=== PATIENT | female | born 1945 | race Caucasian/White ===

== ENCOUNTER 2016-10-31 18:45 | Emergency (ER) | payer OTHER ==
[2016-10-31 19:04] VITALS: RESP 16
--- NOTE | 2016-10-31 19:22 | EDPHY ---
H & P Stated Complaint: Tripped and fell;hit back of head;no LOC, wants to get checked out Time Seen by Provider: 10/31/16 19:11 HPI/ROS: CHIEF COMPLAINT: Fall HISTORY OF PRESENT ILLNESS: Patient is a 71-year-old female who is in good health comes to the emergency department herself after a fall. She states that she was on the 3rd step of a 5 step staircase leaving a dog when she was jerked by the dog and fell backwards. She fell backwards and down 2 steps. She hit her head on the doorjamb. She heard a crack. She did not lose consciousness. She denies head or neck or back pain. She denies extremity injuries. She does not have a headache. No nausea vomiting. She does not take any blood thinners. She was concerned however because of the impact and noise. REVIEW OF SYSTEMS: Constitutional: denies: chills, fever, recent illness, recent injury EENTM: denies: blurred vision, double vision, nose congestion Respiratory: denies: cough, shortness of breath Cardiac: denies: chest pain, irregular heart rate, lightheadedness, palpitations Gastrointestinal/Abdominal: denies: abdominal pain, diarrhea, nausea, vomiting, blood streaked stools Genitourinary: denies: dysuria, frequency, hematuria, pain Musculoskeletal: See HPI Skin: denies: lesions, rash, jaundice, bruising Neurological: denies: headache, numbness, paresthesia, tingling, dizziness, weakness Hematologic/Lymphatic: denies: blood clots, easy bleeding, easy bruising Immunologic/allergic: denies: HIV/AIDS, transplant EXAM: GENERAL: Well-appearing, well-nourished and in no acute distress. HEAD: Atraumatic, normocephalic. no abrasion, hematoma laceration EYES: Pupils equal round and reactive to light, extraocular movements intact, sclera anicteric, conjunctiva are normal. ENT: TMs normal, nares patent, oropharynx clear without exudates. Moist mucous membranes. NECK: Normal range of motion, supple without lymphadenopathy or JVD. No midline tenderness LUNGS: Breath sounds clear to auscultation bilaterally and equal. No wheezes rales or rhonchi. HEART: Regular rate and rhythm without murmurs, rubs or gallops. ABDOMEN: Soft, nontender, normoactive bowel sounds. No guarding, no rebound. No masses appreciated. BACK: No CVA tenderness, no spinal tenderness, step-offs or deformities EXTREMITIES: Normal range of motion, no pitting or edema. No clubbing or cyanosis. NEUROLOGICAL: Cranial nerves II through XII grossly intact. Normal speech, normal gait. 5/5 strength, normal movement in all extremities, normal sensation PSYCH: Normal mood, normal affect. SKIN: Warm, dry, normal turgor, no visible rashes or lesions. Source: Patient Exam Limitations: No limitations - Personal History Current Tetanus Diphtheria and Acellular Pertussis (TDAP): Unsure - Medical/Surgical History Hx Asthma: No Hx Chronic Respiratory Disease: No Hx Diabetes: No Hx Cardiac Disease: No Hx Renal Disease: No Hx Cirrhosis: No Hx Alcoholism: No Other PMH: healthy but has a "lot" of sensitivities to chemicals - Social History Smoking Status: Former smoker Alcohol Use: Sober Drug Use: None Constitutional: Initial Vital Signs Temperature (C) 36.8 C 10/31/16 18:50 Heart Rate 70 10/31/16 18:50 Respiratory Rate 16 10/31/16 18:50 Blood Pressure 105/93 H 10/31/16 18:50 O2 Sat (%) 96 10/31/16 18:50 O2 Delivery Mode Room Air Allergies/Adverse Reactions: sensitivities to chemcials and pain Allergy (Uncoded 10/31/16 19:04) Home Medications: Medication Instructions Recorded NK [No Known Home Meds] 10/31/16 Medical Decision Making - Diagnostics Imaging: Results: CT scan of the head and cervical spine was obtained. The results of the study are negative. The study was read by Radiology. I viewed the images myself on the PACS system. ED Course/Re-evaluation: We discussed the CT results. The patient is relieved. She remains asymptomatic. She is eager to go home. We discussed cautions and indications for returning. She is happy with this and declines further workup or testing at this time. Differential Diagnosis: Partial list of the Differential diagnosis considered include but were not limited to; contusion, laceration, fracture and although unlikely based on the history and physical exam, I also considered intracranial injury, cervical spine injury, assault. I discussed these differential diagnoses and the plan with the patient as well as the usual and expected course. The patient understands that the diagnosis is provisional and that in medicine we are not always correct and that further workup is often warranted. Usual and customary warnings were given. All of the patient's questions were answered. The patient was instructed to return to the emergency department should the symptoms at all worsen or return, otherwise to followup with the physician as we discussed. Departure - Departure Disposition: Home, Routine, Self-Care Clinical Impression: Fall Qualifiers: Encounter type: initial encounter Qualified Code(s): W19.XXXA - Unspecified fall, initial encounter Condition: Fair Instructions: Fall Prevention (ED) Referrals: Joycelyn Bucio MD [Primary Care Provider] - As per Instructions
[2016-10-31 19:53] VITALS: TEMP 97.9
[2016-10-31 20:38] VITALS: BP 127/74; PULSE 65; O2SAT 95
== END 2016-10-31 20:38 | disposition home or self-care (01) ==
DX: Z04.3 Encounter for examination and observation following other accident (principal); Z87.891 Personal history of nicotine dependence; W01.198A Fall on same level from slipping, tripping and stumbling with subsequent striking against other object, initial encounter

== ENCOUNTER → 2016-11-13 | Outpatient (CLI) | payer OTHER | LOC: FIMAGING 13:04 | DX: Z12.31 Encounter for screening mammogram for malignant neoplasm of breast (principal); Z80.3 Family history of malignant neoplasm of breast | CPT/HCPCS: G0202 ==

== ENCOUNTER → 2017-11-18 | Outpatient (CLI) | payer OTHER | LOC: FIMAGING 15:40 | PROVIDERS: ATTEND Family Medicine | DX: Z12.31 Encounter for screening mammogram for malignant neoplasm of breast (principal) ==

== ENCOUNTER 2018-03-12 10:54 | Observation (INO) | payer OTHER ==
--- NOTE | 2018-03-12 11:36 | EDPHY ---
H & P Stated Complaint: dry cough x 2 weeks/saw pcp dx post nasal drip/just not better Source: Patient Exam Limitations: No limitations - Personal History Current Tetanus Diphtheria and Acellular Pertussis (TDAP): No - Medical/Surgical History Hx Asthma: No Hx Chronic Respiratory Disease: No Hx Diabetes: No Hx Cardiac Disease: No Hx Renal Disease: No Hx Cirrhosis: No Hx Alcoholism: No Hx HIV/AIDS: No Hx Splenectomy or Spleen Trauma: No Other PMH: healthy but has a "lot" of sensitivities to chemicals/. sinus lift - Social History Smoking Status: Former smoker Time Seen by Provider: 03/12/18 11:35 HPI/ROS: HPI: This is a 72-year-old female who presents with Chief Complaint: dry cough x 2 weeks/saw pcp dx post nasal drip/just not better Location: chest Quality: cough Duration: 2 weeks Signs and Symptoms: no shortness of breath at rest, no shortness of breath on exertion,+ productive cough yellowish in color, no chest pain, no palpitations, no lower extremity edema, no wheezing, no orthopnea, no paroxysmal nocturnal dyspnea, no fever, no injury/trauma, no hemoptysis, no carpal pedal spasms Timing: Worsening Severity: Moderate Context: Patient presents with a productive cough that is worsening over the last 2 weeks. Reports that she was diagnosed with upper respiratory infection and postnasal drip by primary care provider approximately 2 weeks ago and prescribed nasal spray and [id number] allergy medications. She reports no relief using these medications. She has not had any recent long distance travel and denies any lower extremity swelling. She has had no fever. She reports that she feels like she has had some wheezing intermittently. Her cough is worse at night. Her cough is productive in nature with yellowish tinged sputum. She denies any chest pain, shortness of breath, fever. No history of lung disease. Nonsmoker. Modifying Factors: See above Comment: ROS: see HPI Constitutional: No fever, no chills, no weight loss Eyes: No blurred vision Respiratory: No shortness of breath, + cough Cardiovascular: No chest pain, no palpitations, no lower extremity edema Gastrointestinal: No nausea, no vomiting, no diarrhea Genitourinary: No dysuria Extremities: No myalgias Neurologic: No weakness, no numbness Skin: No rashes Hematologic: No bruising, no bleeding MEDICAL/SURGICAL/SOCIAL HISTORY: Medical history: healthy but has a "lot" of sensitivities to chemicals/sinus lift Surgical history: sinus lift Social history: Retired. Nonsmoker. CONSTITUTIONAL: Nontoxic-appearing elderly white female, awake and alert, no obvious distress HEENT: Atraumatic and normocephalic, PERRL, EOMI. Nares patent; no rhinorrhea; no nasal mucosal edema. Tympanic membranes clear. Oropharynx clear, no exudate and moist pink mucosa. Airway patent. No lymphadenopathy. No meningismus. Cardiovascular: Normal S1/S2, regular rate, regular rhythm, without murmur rub or gallop. PULMONARY/CHEST: Symmetrical and nontender. Clear to auscultation bilaterally. Good air movement. No accessory muscle usage. ABDOMEN: Soft, nondistended, nontender, no rebound, no guarding, no peritoneal signs, no masses or organomegaly. No CVAT. EXTREMITIES: 2/2 pulses, strength 5/5, no deformities, no clubbing, no cyanosis or edema. NEUROLOGICAL: no focal neuro deficits. GCS 15. SKIN: Warm and dry, no erythema. no rash. Good capillary refill. (Delia Uriarte) Constitutional: Initial Vital Signs Temperature (C) 36.6 C 03/12/18 11:01 Heart Rate 85 03/12/18 11:01 Respiratory Rate 18 03/12/18 11:01 Blood Pressure 144/85 H 03/12/18 11:01 O2 Sat (%) 91 L 03/12/18 11:01 O2 Delivery Mode Nasal Cannula O2 (L/minute) 2 Allergies/Adverse Reactions: sensitivities to chemcials and pain Allergy (Uncoded 03/12/18 11:01) Home Medications: Medication Instructions Recorded Albuterol [Proventil Inhaler HFA 1 - 2 puffs IH Q4H PRN 03/12/18 (*)] Aspirin [Aspirin 81mg (*)] 81 mg PO DAILY 03/12/18 Cetirizine [ZyrTEC 10 mg (*)] 10 mg PO DAILY 03/12/18 Cholecalciferol Vit D3 [Vitamin D3 2,000 units PO DAILY 03/12/18 2000 units tab (OTC)] Fluticasone Nasal [Flonase Nasal 1 spray EACHNARE DAILY 03/12/18 [place]] Herbals/Supplements -Info Only 1 ea PO DAILY 03/12/18 Multivitamins W-Minerals [Thera M 1 each PO DAILY 03/12/18 Plus Tablet (*)] Similasan Eye Relief Drops 1 drop EACHEYE DAILY PRN 03/12/18 guaiFENesin [Mucinex 600 MG (*)] 600 mg PO DAILY 03/12/18 Fluticasone/Salmeter 100/50Mcg 1 puffs IH BID #1 disk 03/13/18 [Advair 100/50 (*)] predniSONE 20 mg PO DAILY #3 tablet 03/13/18 Medical Decision Making ED Course/Re-evaluation: Labs, chest x-ray ordered Vital signs stable upon arrival. No signs of tachycardia. O2 sats upon arrival were 90-91% on room air, placed on 2 L nasal cannula with oxygen saturation increasing to 96%. 1215: Troponin is negative. 1225: Labs reviewed. No signs of leukocytosis/anemia/platelet dysfunction/CARY/ electrolyte imbalance/VTE/CHF/ACS. Chest x-ray my read shows mild prominence on the left middle lobe. Suspect developing infiltrate. Blood cultures ordered and Given IV Levaquin. 1310: ED decision to consult hospitalist for admission for community-acquired pneumonia and hypoxia. Patient will be admitted to Dr. Granados on Med Surg. This patient was seen under the supervision of my secondary supervising physician. I evaluated care for this patient independently. Discussed this patient with Dr. York who did see the patient. (Delia Uriarte) The patient was evaluated and managed by the physician human resources office assistant. I have reviewed this chart and I agree with the findings and plan of care as documented , as indicated by my signature. I am the secondary supervising physician. I did not interview or examine this patient. I did review the patient's x-ray. ( Devora York) Differential Diagnosis: Shortness of breath including but not limited to pulmonary infectious process, COPD, asthma, pulmonary embolus and congestive heart failure. (Delia Uriarte) - Data Points Laboratory Results: Laboratory Results 03/12/18 11:55 03/12/18 11:55 Medications Given: Albuterol (Proventil Neb) 3 ml IH QID MARY ANN Stop: 09/08/18 15:59 Last Admin: 03/13/18 06:22 Dose: 3 ml Aspirin (Aspirin) 81 mg PO DAILY MARY ANN Stop: 09/08/18 15:29 Last Admin: 03/13/18 08:08 Dose: 81 mg Cetirizine HCl (Zyrtec) 10 mg PO DAILY MARY ANN Stop: 09/09/18 08:59 Last Admin: 03/13/18 08:08 Dose: 10 mg Fluticasone Propionate (Flonase Nasal [place]) 1 sprays EACHNARE DAILY MARY ANN Stop: 09/08/18 14:14 Last Admin: 03/13/18 08:08 Dose: 1 spray Guaifenesin (Mucinex) 600 mg PO BID [facility] Stop: 09/08/18 20:59 Last Admin: 03/13/18 08:08 Dose: 600 mg Prednisone (Prednisone) 20 mg PO DAILY MARY ANN Stop: 09/08/18 15:44 Last Admin: 03/13/18 08:09 Dose: 20 mg Discontinued Medications Sodium Chloride (Ns) 500 mls @ 1,000 mls/hr IV EDNOW ONE PRN Reason: Protocol Stop: 03/12/18 12:09 Last Admin: 03/12/18 11:51 Dose: 500 mls Levofloxacin/Dextrose (Levaquin 750 Mg (Premix)) 150 mls @ 100 mls/hr IV EDNOW ONE PRN Reason: Protocol Stop: 03/12/18 14:38 Last Admin: 03/12/18 13:59 Dose: 150 mls Prednisone (Prednisone) 40 mg PO DAILY MARY ANN Stop: 09/08/18 15:44 Last Admin: 03/12/18 16:11 Dose: 40 mg Point of Care Test Results: Chemistry 03/12/18 12:05 POC Troponin I 0.00 ng/mL ng/mL (0.00-0.08) Departure - Departure Disposition: [facility] Inpatient Acute Clinical Impression: Hypoxia Community acquired pneumonia Qualifiers: Laterality: unspecified laterality Qualified Code(s): J18.9 - Pneumonia, unspecified organism Condition: Good
[2018-03-12] MEDS ORDERED: NS 500 ML IV ONE (11:40)
[2018-03-12 12:02] LABS: PLATELET COUNT 176 10^3/uL (150-400)
[2018-03-12] MEDS ORDERED: ALBUTEROL 3 ML DEYVIAL IH PRN ×2 (14:02→15:58)
[2018-03-12] MEDS ORDERED: ACETAMINOPHEN 325 MG TAB PO PRN (14:02)
[2018-03-12] MEDS ORDERED: GUAIFENESIN/DM 10 ML UDCUP PO PRN (14:06)
[2018-03-12] MEDS ORDERED: [UNRECOGNIZED DRUG - OTHER] EACHEYE PRN (15:22)
[2018-03-12] MEDS ORDERED: predniSONE 20 MG TAB PO SCH ×2 (15:45→15:47)
--- NOTE | 2018-03-12 15:46 | PDGENHP ---
History and Physical - Chief Complaint wheezing, cough - History of Present Illness 72 yo female with h/o allergies and recent diagnosis of reactive airway presented to ED with wheezing and SOB. She was started on Albuterol inhaler, zyrtec and flonase by her PCP ~2 weeks ago, but the cough and wheezing worsened over past few days and she came to ED. She denies fevers/chills. No pleuritic pain. She notes sensitivity to smoke and allergens. It has been more smokey this weekend in [place]. In the ED, she was mildly hypoxemic and is admitted to the hospital for further management. History Information - Allergies/Home Medication List Allergies/Adverse Reactions: sensitivities to chemcials and pain Allergy (Uncoded 03/12/18 11:01) Home Medications: Albuterol [Proventil Inhaler HFA (*)] 1 - 2 puffs IH Q4H PRN 03/12/18 [Last Taken 03/11/18] Aspirin [Aspirin 81mg (*)] 81 mg PO DAILY 03/12/18 [Last Taken 03/10/18] Cetirizine [ZyrTEC 10 mg (*)] 10 mg PO DAILY 03/12/18 [Last Taken 03/11/18] Cholecalciferol Vit D3 [Vitamin D3 2000 units tab (OTC)] 2,000 units PO DAILY [Last Taken 03/11/18] Fluticasone Nasal [Flonase Nasal [place]] 1 spray EACHNARE DAILY 03/12/18 [Last Taken 03/11/18] Herbals/Supplements -Info Only 1 ea PO DAILY 03/12/18 [Last Taken Unknown] Multivitamins W-Minerals [Thera M Plus Tablet (*)] 1 each PO DAILY 03/12/18 [ Last Taken 03/11/18] Similasan Eye Relief Drops 1 drop EACHEYE DAILY PRN 03/12/18 [Last Taken ] guaiFENesin [Mucinex 600 MG (*)] 600 mg PO DAILY 03/12/18 [Last Taken 03/11/18] I have personally reviewed and updated: family history, medical history, social history, surgical history - Past Medical History Additional medical history: allergic rhinitis, post-nasal drip. RAD - Surgical History Reports: no pertinent surgical hx - Family History Positive for: non-pertinent - Social History Smoking Status: Former smoker Alcohol Use: None Drug Use: None Additional social history: Lives independently Review of Systems Review of Systems: ROS: 10pt was reviewed & negative except for what was stated in HPI & below Physical Exam Physical Exam: Temp Pulse Resp BP Pulse Ox 36.6 C 80 16 135/82 H 96 03/12/18 11:01 03/12/18 14:54 03/12/18 14:54 03/12/18 14:54 03/12/18 14:54 O2 (L/minute) 2 Constitutional: no apparent distress Eyes: PERRL Ears, Nose, Mouth, Throat: moist mucous membranes Cardiovascular: regular rate and rhythym Respiratory: no respiratory distress, reduced air movement, expiratory wheeze Gastrointestinal: normoactive bowel sounds, soft, non-tender abdomen Skin: warm Musculoskeletal: full muscle strength Neurologic: AAOx3 Psychiatric: interacting appropriately Lab Data & Imaging Review 03/12/18 11:55 03/12/18 11:55 WBC 8.32 10^3/uL (3.80-9.50) 03/12/18 11:55 RBC 4.72 10^6/uL (4.18-5.33) 03/12/18 11:55 Hgb 14.4 g/dL (12.6-16.3) 03/12/18 11:55 Hct 43.5 % (38.0-47.0) 03/12/18 11:55 MCV 92.2 fL (81.5-99.8) 03/12/18 11:55 MCH 30.5 pg (27.9-34.1) 03/12/18 11:55 MCHC 33.1 g/dL (32.4-36.7) 03/12/18 11:55 RDW 13.7 % (11.5-15.2) 03/12/18 11:55 Plt Count 176 10^3/uL (150-400) 03/12/18 11:55 MPV 12.4 fL (8.7-11.7) H 03/12/18 11:55 Neut % (Auto) 55.8 % (39.3-74.2) 03/12/18 11:55 Lymph % (Auto) 23.7 % (15.0-45.0) 03/12/18 11:55 [place] % (Auto) 6.4 % (4.5-13.0) 03/12/18 11:55 Eos % (Auto) 12.9 % (0.6-7.6) H 03/12/18 11:55 Baso % (Auto) 1.0 % (0.3-1.7) 03/12/18 11:55 Nucleat RBC Rel Count 0.0 % (0.0-0.2) 03/12/18 11:55 Absolute Neuts (auto) 4.65 10^3/uL (1.70-6.50) 03/12/18 11:55 Absolute Lymphs (auto) 1.97 10^3/uL (1.00-3.00) 03/12/18 11:55 Absolute Monos (auto) 0.53 10^3/uL (0.30-0.80) 03/12/18 11:55 Absolute Eos (auto) 1.07 10^3/uL (0.03-0.40) H 03/12/18 11:55 Absolute Basos (auto) 0.08 10^3/uL (0.02-0.10) 03/12/18 11:55 Absolute Nucleated RBC 0.00 10^3/uL (0-0.01) 03/12/18 11:55 Immature Gran % 0.2 % (0.0-1.1) 03/12/18 11:55 Immature Gran # 0.02 10^3/uL (0.00-0.10) 03/12/18 11:55 D-Dimer 0.49 ug/mLFEU (0.00-0.50) 03/12/18 11:55 Sodium 138 mEq/L (135-145) 03/12/18 11:55 Potassium 3.7 mEq/L (3.3-5.0) 03/12/18 11:55 Chloride 109 mEq/L (97-110) 03/12/18 11:55 Carbon Dioxide 24 mEq/l (22-31) 03/12/18 11:55 Anion Gap 5 mEq/L (8-16) L 03/12/18 11:55 BUN 9 mg/dL (7-23) 03/12/18 11:55 Creatinine 0.6 mg/dL (0.6-1.0) 03/12/18 11:55 Estimated GFR > 60 03/12/18 11:55 Glucose 101 mg/dL (70-100) H 03/12/18 11:55 Calcium 9.5 mg/dL (8.5-10.4) 03/12/18 11:55 POC Troponin I 0.00 ng/mL (0.00-0.08) 03/12/18 12:05 NT-Pro-B Natriuret Pep 16 pg/mL (0-125) 03/12/18 11:55 Procalcitonin < 0.02 ng/mL (0.02-0.10) L 03/12/18 11:55 Visualized and Interpreted Chest x-ray results: Yes Chest X-Ray results: no infiltrate Assessment & Plan Assessment: AHRF 2/2 RAD exacerbation - likely triggered by hayfever / allergies. Requiring 2 LPM O2. CXR with kashif-bronchial thickening. PCT neg, doubt bacterial PNA. -start oral prednisone (low dose per pt request) -cont zyrtec, flonase -albuterol nebs QID plus prn -send resp viral panel -guaifenesin, anti-tussives prn -wean O2 as able -likely needs inhaled steroid at discharge Full code Dispo - obs
[2018-03-12] MEDS: ASPIRIN 81 MG CHEWABLE TAB PO SCH (16:10)
[2018-03-12] MEDS: FLUTICASONE NASAL 120 SPRAYS/16 GM MDI EACHNARE SCH (16:13)
[2018-03-12] MEDS: ALBUTEROL 3 ML DEYVIAL IH SCH ×2 (17:59→21:48)
[2018-03-12] MEDS: guaiFENesin 600 MG TAB.ER PO SCH (20:16)
[2018-03-13] MEDS: ALBUTEROL 3 ML DEYVIAL IH SCH ×2 (06:22→10:26)
[2018-03-13] MEDS: guaiFENesin 600 MG TAB.ER PO SCH (08:08)
[2018-03-13] MEDS: ASPIRIN 81 MG CHEWABLE TAB PO SCH (08:08)
[2018-03-13] MEDS: FLUTICASONE NASAL 120 SPRAYS/16 GM MDI EACHNARE SCH (08:08)
--- NOTE | 2018-03-13 08:48 | ASDISCHSUM ---
Discharge Information Plan Status:Home with No Needs Medically Cleared to Leave:03/13/2018 Discharge Date:03/13/2018 CM D/C Disposition:Home, Routine, Self-Care ADT D/C Disposition:Home, Routine, Self-Care Projected Discharge Date:03/13/2018 Transportation at D/C: Discharge Delay Reason: Follow-Up Date:03/13/2018 Discharge Slot: Final Diagnosis: Placement Information Patient Contact Information Contact Name:EVA Relationship: Address:[address] [place] [address] Work Phone: City:[facility] Phone: [facility]/Zip Code:[place] [address] Email: Financial Information Financial Class:Medicare Advantage Plans Primary Plan Desc:[facility] ADVANTAGE PLANS Primary Plan Number:[id number] Secondary Plan Desc: Secondary Plan Number: Assessment Information LACE LACE Length of stay for Answers: Less than 1 day current admission Acuity / Level of Answers: Yes Care: Did the patient have an inpatient admission? Comorbidities - select Answers: Other Notes: RAD all that apply # of Emergency department Answers: 1-2 visits in the last 6 months Score: 5 Date Signed: 03/13/2018 08:45 AM Electronically Signed By:Shayna Arevalo RN [facility] CM Progress Note CM Note CM Note Notes: Chart reviewed. Patient has been medically clear to discharge to home no needs. CM available should needs arise. Plan: DC to home independently. Date Signed: 03/13/2018 08:47 AM Electronically Signed By:Shayna Arevalo RN Intervention Information
[2018-03-13 08:51] VITALS: BP 129/82
[2018-03-13] MEDS ORDERED: CETIRIZINE 10 MG TAB PO SCH (09:00)
--- NOTE | 2018-03-13 14:27 | GDS ---
[f rep st] DISCHARGE SUMMARY DISCHARGE DIAGNOSES: 1. Hypoxemia secondary to reactive airway disease exacerbation. 2. Acute reactive airway disease exacerbation secondary to allergies and environmental exposures. HISTORY OF PRESENT ILLNESS: For details please see the history and physical dated March 12, 2018. In brief, the patient is a 72-year-old female with a history of allergic rhinitis who presents to the emergency department with 2 weeks of wheezing and cough. She was found to be mildly hypoxemic with an oxygen saturation of 90% on room air and was admitted to the hospital for further management. HOSPITAL COURSE: The patient received a dose of Levaquin in the emergency department, admitted to e Medical/Surgical Unit. There was no evidence of focal infiltrate on her chest x-ray, but she did browne ve diffuse peribronchial wall thickening. Her procalcitonin was negative, thus antibiotics were disc ontinued. It is noted she is a former smoker and there may be some emphysematous configuration on he r chest x-ray, thus she should under go outpatient pulmonary function test to evaluate for COPD. It seems this reactive airway exacerbation was triggered by hay fever and allergies and also recent smok y air. She did require 2 liters of oxygen overnight that was weaned to room air the following mornin g with her saturation maintaining around 94% during our entire lengthy visit. She was treated with or al prednisone as well as albuterol nebulizers. A respiratory viral panel was negative. She was kinza nued on Zyrtec and Flonase and at discharge we will also add Advair. As above, she should undergo ou tpatient pulmonary function tests and if there is evidence of a COPD pattern, she may benefit from [facility] addition of ipratropium and I request her PCP look into this further. DISPOSITION: The patient is discharged home in stable condition. FOLLOWUP: 1. Dr. Joycelyn Bucio, primary care. 2. Outpatient referral for pulmonary function test is recommended. DISCHARGE MEDICATIONS: Please see [employer] for complete outpatient medication list. New medications on discharge include: 1. Prednisone 20 mg p.o. daily for 3 more days for a total of 5-day burst (the patient declined a hi gher dose). 2. Advair 100/50 1 puff inhaled twice daily. She will continue on all of her other outpatient medications as previously prescribed including albut jorge, guaifenesin, Zyrtec, aspirin. /[id number]/MODL
--- NOTE | 2018-03-16 16:42 | HOSPPROG ---
Hospitalist Progress Note Assessment/Plan: Received call from lab re: BCx's. One of two anaerobic bottles positive for gram positive rods. PCR ID is negative, no orgs. Her clinical course during her overnight hospital observation was not suggestive of bacterial infection or bacteremia. She was afebrile, had normal wbc's. I've phoned the patient multiple times to check on her condition, but was unable to reach her. Left voicemail requesting she call back our industrial education teacher pager. If she calls back and has any symptoms suggestive of bacteremia such as fevers, chills, pain, etc, please return to ED immediately. Since I was unable to reach the patient, I phoned her PCP office and discussed the case with Dr. Hoffmann, who is covering for her PCP. Their office will continue to attempt to reach her and follow up on BCx's. This may be a contaminant. Objective: Vital Signs Temp Pulse Resp BP Pulse Ox 36.9 C 75 16 129/82 H 90 L 03/13/18 08:49 03/13/18 10:26 03/13/18 10:26 03/13/18 08:49 03/13/18 10:26 Microbiology 03/12/18 13:43 Blood Panel (PCR) - Final Blood No Organism Detected ICD10 Worksheet Patient Problems: Problems Problem Status Onset Community acquired pneumonia Acute Hypoxia Acute
== END 2018-03-13 12:12 | disposition home or self-care (01) ==
LOC: INTOOBSV 13:28 → F3E 15:03
PROVIDERS: ADMIT Hospitalist; ATTEND Hospitalist
DX: J45.901 Unspecified asthma with (acute) exacerbation (principal); R09.02 Hypoxemia
CPT/HCPCS: 71046; G0378; J1956; J7512; J7613; 84484-PO

== ENCOUNTER 2018-11-20 21:52 | Emergency (ER) | payer OTHER ==
[2018-11-20] MEDS ORDERED: ASPIRIN 81 MG CHEWABLE TAB PO ONE (22:09)
[2018-11-20] MEDS ORDERED: MAG HYDROX/AL HYDROX/SIMETH 30 ML UDCUP PO ONE (22:10)
[2018-11-20] MEDS ORDERED: HYOSCYAMINE SULFATE 0.125 MG TAB PO ONE (22:10)
[2018-11-20] MEDS ORDERED: IPRATROPIUM/ALBUTEROL 3 ML DEYVIAL IH ONE ×2 (22:41→22:42)
--- NOTE | 2018-11-20 22:49 | EDPHY ---
H & P Stated Complaint: Chest tightness for several weeks. 5/10 tonight. Time Seen by Provider: 11/20/18 21:58 HPI/ROS: This patient reports 2 weeks of intermittent chest tightness. Current episode has been present for about 45 min. She feels increased GERD symptoms recently associated with her symptoms and notes that the tender worse when she is supine compared to when she is upright. Symptoms and resolved when she is upright. She describes peak intensity is 6/10 substernal location but also thinks symptoms may be attributable to tightness from emphysema. She did take a Flovent inhaler treatment last night with partial improvement of her symptoms. She took Zantac 150 mg at 7:00 p.m. Tonight prior to coming in reports that she intermittently takes Zantac and admits that she has had increased belching, and acid reflux symptoms of burning in her chest recently. ROS: Constitutional: No fevers or chills HEENT: No URI symptoms Pulmonary: Mild chronic cough since the summer. No pleuritic pain or hemoptysis. Cardiovascular: No heart palpitations. No lower extremity edema or calf pain. No lightheadedness. GI: No abdominal pain nausea vomiting. : No complaints Integumentary: No complaints 10 point review of symptoms is performed and otherwise negative with exception of pertinent positives and negatives listed in HPI and ROS Source: Patient Exam Limitations: No limitations - Medical/Surgical History Hx Asthma: No Hx Chronic Respiratory Disease: No Hx Diabetes: No Hx Cardiac Disease: No Hx Renal Disease: No Hx Cirrhosis: No Hx Alcoholism: No Hx HIV/AIDS: No Hx Splenectomy or Spleen Trauma: No Other PMH: healthy but has a "lot" of sensitivities to chemicals/. sinus lift, NIKIA on 2L at night. - Family History Significant Family History: No pertinent family hx - Social History Smoking Status: Former smoker (She was a heavy smoker but quit in the late 1980s.) Alcohol Use: Rarely Drug Use: None - Physical Exam Exam: General Appearance: Alert, no distress. Eyes: Pupils equal and round no pallor or injection. ENT, Mouth: Mucous membranes moist. Respiratory: There are no retractions, lungs are clear to auscultation. Cardiovascular: Regular rate and rhythm. No murmur gallop rub Gastrointestinal: Abdomen is soft and nontender, no masses, bowel sounds normal. Neurological: GCS 15. Skin: Warm and dry, no rashes. Musculoskeletal: Neck is supple nontender. Extremities are symmetrical, full range of motion. Psychiatric: Mood and affect normal DIFFERENTIAL DIAGNOSIS: After history and physical exam differential diagnosis was considered for GERD with esophagitis and/or esophageal spasm, mild COPD exacerbation with tightness due to bronchial constriction, pneumonia, pneumothorax, myocardial ischemic disease Constitutional: Initial Vital Signs Temperature (C) 36.8 C 11/20/18 21:59 Heart Rate 77 11/20/18 21:59 Respiratory Rate 18 11/20/18 21:59 Blood Pressure 168/85 H 11/20/18 21:59 O2 Sat (%) 94 11/20/18 21:59 O2 Delivery Mode Room Air Allergies/Adverse Reactions: sensitivities to chemcials and pain Allergy (Uncoded 03/12/18 11:01) Home Medications: Medication Instructions Recorded Albuterol [Proventil Inhaler HFA 1 - 2 puffs IH Q4H PRN 03/12/18 (*)] Aspirin [Aspirin 81mg (*)] 81 mg PO DAILY 03/12/18 Cetirizine [ZyrTEC 10 mg (*)] 10 mg PO DAILY 03/12/18 Cholecalciferol Vit D3 [Vitamin D3 2,000 units PO DAILY 03/12/18 2000 units tab (OTC)] Fluticasone Nasal [Flonase Nasal 1 spray EACHNARE DAILY 03/12/18 [place]] Herbals/Supplements -Info Only 1 ea PO DAILY 03/12/18 Multivitamins W-Minerals [Thera M 1 each PO DAILY 03/12/18 Plus Tablet (*)] Similasan Eye Relief Drops 1 drop EACHEYE DAILY PRN 03/12/18 guaiFENesin [Mucinex 600 MG (*)] 600 mg PO DAILY 03/12/18 Fluticasone/Salmeter 100/50Mcg 1 puffs IH BID #1 disk 03/13/18 [Advair 100/50 (*)] predniSONE 20 mg PO DAILY #3 tablet 03/13/18 Albuterol Hfa Anes Only [Proair 2 puffs IH Q4 PRN #1 mdi 11/20/18 Hfa Icu (*)] Azithromycin [Zithromax] 250 mg PO DAILY #4 tab 11/20/18 Fluticasone Hfa 220 Mcg [Flovent 2 puffs IH DAILY #1 mdi 11/20/18 220 MCG Hfa MDI (*)] Hyoscyamine Sulfate [Levsin, 0.125 - 0.25 mg SL Q6 PRN #20 tab 11/20/18 Hyomax-Sl 0.125 mg (*)] Medical Decision Making - Diagnostics EKG Interpretation: 12 lead EKG performed shortly after arrival at 10:02 p.m. Reveals sinus rhythm at 78 Intervals: Normal throughout [place]: Normal throughout ST segments: Normal throughout Overall assessment sinus rhythm normal EKG Imaging Results: Two view chest x-ray: Emphysematous findings with question small left mid lung lesion verses blood vessel viewed on end. Imaging: Discussed imaging studies w/ call circuit worker Radiologist, I viewed and interpreted images myself ED Course/Re-evaluation: Aspirin 324, monitor Maalox and Levsin with some improvement in her chest tightness DuoNeb in addition with improvement I spoke with Ricahrd Diez, radiologist regarding her chest x-ray. He agrees that there appears to be a left-sided lesion verses and flexion is sec will a that may resolved with treatment. Plan to repeat chest x-ray in 2 weeks after treatment with macrolide antibiotic. Patient has mild increased right-sided perihilar markings with history of COPD and coughing slight tightness. Will cover her with Zithromax antibiotic and repeat chest x-ray in 2 weeks to see if left-sided lesion resolved with treatment of infectious etiology/COPD exacerbation or not. Counseled patient regarding this in some detail. Discussion: Patient presents with intermittent chest pains over the proceeding days the think is attributable to a COPD exacerbation as well as an element of GERD. I counseled regarding this in some detail. She improved with treatment here and declined any further workup or admission for her symptoms and she did improve. She is aware that we cannot entirely rule out other causes of chest pain including cardiac but I think this is unlikely with her normal EKG and heart score of 3 with other cause of chest pain more likely-COPD exacerbation and GERD. Counseled regarding the lung lesion versus increased markings in left -sided which warrants a follow-up chest x-ray after treatment with antibiotics. She understands this acknowledges the plan. Answered all her questions prior to discharge home. She understands need to return emergency department should she develop any worsening symptoms despite treatment plan of Zithromax, albuterol, Flovent, antacids, bland diet - Data Points Medications Given: Discontinued Medications Al Hydroxide/Mg Hydroxide (Maalox Susp) 30 ml PO EDNOW ONE Stop: 11/20/18 22:11 Last Admin: 11/20/18 22:17 Dose: 30 ml Albuterol/Ipratropium (Duoneb) 3 ml IH EDNOW ONE Stop: 11/20/18 22:42 Last Admin: 11/20/18 22:44 Dose: 3 ml Albuterol/Ipratropium (Duoneb) 3 ml IH EDNOW ONE Stop: 11/20/18 22:43 Last Admin: 11/20/18 22:44 Dose: Not Given Aspirin (Aspirin) 324 mg PO EDNOW ONE Stop: 11/20/18 22:10 Last Admin: 11/20/18 22:17 Dose: 324 mg Azithromycin (Zithromax) 500 mg PO EDNOW ONE PRN Reason: Protocol Stop: 11/20/18 22:57 Last Admin: 11/20/18 23:00 Dose: 500 mg Hyoscyamine Sulfate (Levsin, Hyomax-Sl) 0.125 mg PO EDNOW ONE Stop: 11/20/18 22:11 Last Admin: 11/20/18 22:17 Dose: 0.125 mg Point of Care Test Results: CBC CBC Collection Date 11/20/18 CBC Collection Time 22:10 WBC 8.65 RBC 4.87 HGB 15.0 HCT 45.7 PLT 202 Neut # 4.67 LYMPH # 2.72 MCV 93.8 Chemistry 11/20/18 11/20/18 22:23 22:08 POC Sodium 146 mEq/L H mEq/L (135-145) POC Potassium 3.5 mEq/L mEq/L (3.3-5.0) POC Chloride 108.0 mEq/L mEq/L (97-110) POC Total CO2 25 mEq/L mEq/L (22-31) POC BUN 11 mg/dL mg/dL (7-23) POC Creatinine 0.6 mg/dL mg/dL (0.6-1.0) POC Glucose 121 mg/dL H mg/dL (70-100) POC Calcium 9.5 mg/dL mg/dL (8.5-10.4) POC Troponin I 0.01 ng/mL ng/mL (0.00-0.08) Departure - Departure Disposition: Home, Routine, Self-Care Clinical Impression: COPD exacerbation GERD (gastroesophageal reflux disease) Qualifiers: Esophagitis presence: esophagitis presence not specified Qualified Code(s): K21.9 - Gastro-esophageal reflux disease without esophagitis Condition: Good Instructions: COPD (Chronic Obstructive Pulmonary Disease) (ED), Gastroesophageal Reflux Disease (ED) Additional Instructions: Diagnosis: 1. COPD exacerbation 2. Gastroesophageal reflux disease 3. Left- sided lung lesion-likely related to infection Plan: Humidifier Zithromax antibiotic Albuterol inhaler for cough, wheeze or shortness of breath needed Flovent steroid inhaler Call your primary care physician to arrange for a repeat chest x-ray 2 weeks from now to see if the small lesion on the left side has resolved with treatment of infection. Increase her Zantac to 300 mg a day and have a bland diet until your acid reflux improves levsin in addition for chest discomfort if needed. Also consider propping of the head of her bed on a 2 by for under each corner post the head of the bed. Maalox in addition and Levsin if needed for chest tightness. Follow-up with primary care physician Return emergency department for any significant worsening despite treatment plan Referrals: Joycelyn Bucio MD [Primary Care Provider] - As per Instructions Prescriptions: Albuterol Hfa Anes Only [Proair Hfa Icu (*)] 2 puffs IH Q4 PRN #1 mdi PRN Reason: Wheezing Azithromycin [Zithromax] 250 mg PO DAILY #4 tab Fluticasone Hfa 220 Mcg [Flovent 220 MCG Hfa MDI (*)] 2 puffs IH DAILY #1 mdi Hyoscyamine Sulfate [Levsin, Hyomax-Sl 0.125 mg (*)] 0.125 - 0.25 mg SL Q6 PRN # 20 tab PRN Reason: abdominal cramping
[2018-11-20] MEDS ORDERED: AZITHROMYCIN 250 MG TAB PO ONE (22:56)
[2018-11-20 23:06] VITALS: BP 121/85
== END 2018-11-20 23:18 | disposition home or self-care (01) ==
LOC: CED 21:52
DX: J44.1 Chronic obstructive pulmonary disease with (acute) exacerbation (principal); K21.9 Gastro-esophageal reflux disease without esophagitis; R91.8 Other nonspecific abnormal finding of lung field
CPT/HCPCS: 71046-PO; 80048-ER; 84484-ER

== ENCOUNTER → 2018-11-24 | Outpatient (CLI) | payer OTHER | LOC: FIMAGING 16:07 | PROVIDERS: ATTEND Family Medicine | DX: Z12.31 Encounter for screening mammogram for malignant neoplasm of breast (principal) ==

== ENCOUNTER → 2018-12-04 | Outpatient (CLI) | payer OTHER | LOC: FIMAGING 19:20 | PROVIDERS: ATTEND Family Medicine | DX: R91.1 Solitary pulmonary nodule (principal); R07.9 Chest pain, unspecified; R05 Cough ==

== ENCOUNTER → 2019-01-27 | Outpatient (CLI) | payer OTHER | LOC: CIMAGING 12:19 | PROVIDERS: ATTEND Internal Medicine Critical Care Medicine | DX: S22.32XD Fracture of one rib, left side, subsequent encounter for fracture with routine healing (principal); J31.0 Chronic rhinitis; R05 Cough | CPT/HCPCS: 71250-PO ==

== ENCOUNTER 2019-02-02 06:50 | Day surgery (SDC) | payer OTHER ==
[2019-02-02] MEDS ORDERED: ASPIRIN EC 325 MG TAB PO ONE ×2 (06:54→07:03)
[2019-02-02] MEDS ORDERED: FAMOTIDINE 20 MG TAB PO ONE (06:54)
[2019-02-02] MEDS ORDERED: DIAZEPAM 5 MG TAB PO ONE (06:54)
[2019-02-02] MEDS ORDERED: diphenhydrAMINE 25 MG CAP PO ONE ×2 (06:54→07:02)
[2019-02-02] MEDS ORDERED: NS 1,000 ML IV ONE (06:54)
[2019-02-02] MEDS ORDERED: FAMOTIDINE 20 MG TAB ONE (07:03)
[2019-02-02] MEDS ORDERED: DIAZEPAM 5 MG TAB ONE (07:03)
[2019-02-02 07:36] LABS: PLATELET COUNT 187 10^3/uL (150-400)
[2019-02-02 07:45] LABS: INR 0.96 (0.83-1.16); PROTIME(PATIENT) 12.4 SEC (12.0-15.0)
[2019-02-02] MEDS ORDERED: fentaNYL 100 MCG/2 ML INJ ONE (08:22)
[2019-02-02] MEDS ORDERED: HEPARIN 10,000 UNIT/10 ML MDV (1,000 UNIT/ML) ONE (08:23)
[2019-02-02] MEDS ORDERED: VERAPAMIL 5 MG/2 ML VIAL ONE (08:23)
[2019-02-02] MEDS ORDERED: LIDOCAINE 1% 5 ML SDV ONE (08:23)
[2019-02-02] MEDS ORDERED: MIDAZOLAM 2 MG/2 ML VIAL ONE (08:23)
[2019-02-02] MEDS ORDERED: IOPAMIDOL (ISOVUE 370) 100 ML BTL IV ONE (08:24)
--- NOTE | 2019-02-02 08:42 | PDHPUP ---
History & Physical Update H&P update statement: This history and physical update is based on an assessment of the patient which was completed after admission or registration (within 24 hours), but prior to the surgery/procedure. H&P update: H&P reviewed & patient examined, no change in patient's condition since H&P completed
--- NOTE | 2019-02-02 08:43 | PDPROPOC ---
Sedation Plan of Care Sedation Plan of Care: vital signs stable, mental status noted, patient educated of risks, benefits, alternatives, patient can tolerate sedation ASA Classification: ASA 2 Planned drugs: fentanyl, midazolam Mallampati Score: Class 1 Mallampati Reference Image: Patient passed 3-3-2 rule?: Yes
--- NOTE | 2019-02-02 09:42 | PDDXCAT ---
Diagnostic Cath Note - . Date: 02/02/19 Compliance Examiner: [place] Indication: Class I/II angina, intolerance to med therapy or failure to respond High-risk criteria on non-invasive testing: stress-induced moderate-size multiple perfusion defects - Procedure Access: right wrist Procedure: left heart catheterization, coronary angiography, left ventriculogram , right heart catheterization - Materials Left Heart Cath size: 5F Left Heart Cath materials: pigtail, other ([place] 4) Right Heart Cath size: 5F Right Heart Cath materials: PWP catheter - Findings-Left Heart Catheterization LM: Normal LAD: Normal LCX: Normal RCA: Dominant: Normal EDP: 18 mm of mercury LVEF: 65 Wall motion: Normal - Findings-Right Heart Catheterization RA: 5 mm of mercury RV: 35/8 mm of mercury PA: 35/18 mm of mercury PAOP: 12 mm of mercury Complications: None Estimated blood loss: <50ml Closure method: TR Band Assessment: Normal coronary arteries. Normal LV systolic function. Normal right heart pressures. Plan: Continued primary prevention Patient Problems: Problems Problem Status Onset Community acquired pneumonia Acute Hypoxia Acute COPD exacerbation Acute GERD (gastroesophageal reflux disease) Acute
--- NOTE | 2019-02-08 17:37 | CPEKG ---
Test Reason : OPEN Blood Pressure : / mmHG Vent. Rate : 075 BPM Atrial Rate : 075 BPM P-R Int : 160 ms QRS Dur : 092 ms QT Int : 402 ms P-R-T Axes : 063 024 017 degrees QTc Int : 449 ms Sinus rhythm Confirmed by Lyle Strickland ([id number]) on 02/08/2019 5:36:36 PM Referred By: REYNA BEEBE Confirmed By:Lyle Strickland
== END 2019-02-02 12:47 | disposition home or self-care (01) ==
LOC: FCATH 06:50
PROVIDERS: ATTEND Internal Medicine Interventional Cardiology
DX: I20.9 Angina pectoris, unspecified (principal); E78.5 Hyperlipidemia, unspecified; I10 Essential (primary) hypertension
CPT/HCPCS: 93460; C1769; J1644; J2250; J3010; Q9967